=== PATIENT | female | born 1945 ===

== ENCOUNTER 2020-10-05 15:05 | Inpatient (IN) | payer OTHER ==
[~2020-10-05] VITALS: Ht 157.4 cm; Wt 45.4 kg
[2020-10-05] MEDS ORDERED: VISTARIL50 MG PO (16:52)
[2020-10-05] MEDS ORDERED: MILK OF MA400 MG/51 PO (16:55)
[2020-10-05] MEDS ORDERED: TYLENOL325 M3 PO (16:55)
[2020-10-05] MEDS ORDERED: RISPERIDONE M-TA1 MG PO (17:13)
[2020-10-05] MEDS ORDERED: DEPAKENE S250 MG/5 M PO (17:16)
[2020-10-06 03:30] VITALS: BP 149/82
[2020-10-06 05:15] LABS: BILIRUBIN Negative (Negative); BLOOD Negative (Negative); CLARITY Clear (Clear); COLOR Yellow (Yellow); GLUCOSE Negative (Negative); KETONE Negative (Negative); LEUKO ESTERASE Negative (Negative); NITRITE Negative (Negative); PH 7.5 (4.5-8.0); SPECIFIC GRAVITY <= 1.005 (1.001-1.030); UROBILINOGEN 0.2 E.U./dl (0.0-1.0)
[2020-10-06 07:20] VITALS: BP 156/77
[2020-10-06 19:00] VITALS: BP 149/69
[2020-10-07 07:07] VITALS: BP 140/65
[2020-10-07 20:00] VITALS: BP 144/81
[2020-10-08 08:11] VITALS: BP 140/71
[2020-10-08 20:00] VITALS: BP 118/62
[2020-10-09 07:40] VITALS: BP 138/70
[2020-10-09 20:00] VITALS: BP 126/63
[2020-10-10 08:21] VITALS: BP 115/59
[2020-10-10 20:00] VITALS: BP 141/62
[2020-10-11 07:17] VITALS: BP 128/73
[2020-10-11 20:00] VITALS: BP 121/59
[2020-10-12 07:54] VITALS: BP 121/67
[2020-10-12 20:00] VITALS: BP 143/77
[2020-10-13 07:24] VITALS: BP 128/66
[2020-10-13 20:00] VITALS: BP 110/81
[2020-10-14 08:00] VITALS: BP 124/78
[2020-10-14 19:37] VITALS: BP 115/52
[2020-10-15 20:00] VITALS: BP 108/58
[2020-10-16 07:09] VITALS: BP 106/58
[2020-10-16 20:00] VITALS: BP 140/57
[2020-10-17 07:09] VITALS: BP 151/78
[2020-10-17 19:55] VITALS: BP 137/54
[2020-10-18 07:16] VITALS: BP 113/58
[2020-10-18 19:43] VITALS: BP 91/53
[2020-10-19 07:17] VITALS: BP 116/57
[2020-10-19] MEDS ORDERED: MEMANTINE HCL10 MG PO (10:07)
[2020-10-19] MEDS ORDERED: MIRTAZAPINE15 M2 PO (10:07)
[2020-10-19] MEDS ORDERED: RIVASTIGMINE1 EAC2 T (10:07)
[2020-10-19] MEDS ORDERED: INVEGA SUSTENN156 MG IM (10:07)
[2020-10-19] MEDS ORDERED: HYDROXYZINE HCL25 MG PO (10:07)
[2020-10-19] MEDS ORDERED: ROZEREM8 MG PO (10:07)
== END 2020-10-19 13:04 | DRG 883 ==
LOC: 3N 15:05
PROVIDERS: Counselor Professional; ADMIT Psychiatry & Neurology Psychiatry; ATTEND Psychiatry & Neurology Psychiatry
DX: F63.81 Intermittent explosive disorder (principal); E44.0 Moderate protein-calorie malnutrition; F02.81 Dementia in other diseases classified elsewhere, unspecified severity, with behavioral disturbance; Z68.1 Body mass index [BMI] 19.9 or less, adult; F40.232 Fear of other medical care; F41.1 Generalized anxiety disorder; F60.0 Paranoid personality disorder; G30.9 Alzheimer's disease, unspecified; Z90.49 Acquired absence of other specified parts of digestive tract; Z88.0 Allergy status to penicillin; Z88.8 Allergy status to other drugs, medicaments and biological substances; Z79.899 Other long term (current) drug therapy; Z79.1 Long term (current) use of non-steroidal anti-inflammatories (NSAID)